=== PATIENT | male | born 1935 | race Caucasian/White ===

== ENCOUNTER 2019-05-10 10:42 | Day surgery (SDC) | payer MEDICARE ==
[2019-05-09 14:56] VITALS: BMI 25.8
--- NOTE | 2019-05-10 20:51 | OP ---
DATE OF PROCEDURE: 05/10/2019 PROCEDURE PERFORMED: Colonoscopy with snare polypectomy and biopsy. PREPROCEDURE DIAGNOSIS: Average risk colon cancer screening. POSTPROCEDURE DIAGNOSES: 1. Exam to cecum; good bowel preparation. 2. Moderate sigmoid diverticulosis. 3. Diminutive sessile polyp in the sigmoid colon (4 mm), removed by snare electrocautery. 4. Two small sessile polyps in the transverse colon, one removed by cold snare technique and the second by biopsy. 5. Small internal hemorrhoids. 6. Otherwise normal colonoscopy. PROCEDURE IN DETAIL: Written informed consent was obtained. The patient was brought to the endoscopy suite. Total intravenous anesthesia was provided by Toni Saleh CRNA. The patient was placed in the left lateral decubitus position. A digital rectal exam was performed that was unremarkable. A Pentax video colonoscope was inserted through the anal canal and advanced under direct visualization to the cecum. Position in the cecum was verified by clear identification of the appendiceal orifice and the ileocecal valve. The quality of the bowel preparation was good. Each colon segment was examined carefully as the colonoscope was slowly withdrawn from the cecum. Vascular pattern and haustral folds appeared normal. Frequent diverticular orifices, both small and large, were identified in the sigmoid colon. There was no evidence of bleeding from the diverticula. A small sessile polyp about 4 mm in diameter was removed from the mid sigmoid colon by snare electrocautery. Good hemostasis was verified post polypectomy and the tissue were submitted to Pathology. Two additional small sessile polyps were identified in the transverse colon. The larger polyp measuring 3 mm in diameter was removed by cold snare technique. The second 2 mm polyp was removed by cold biopsy forceps. The polyp tissue was retrieved and submitted to Pathology. No other synchronous polyps were identified. In the rectum, retroflexed view demonstrated small internal hemorrhoids that were not actively bleeding. The colon was decompressed as the colonoscope was removed from the patient. He was transferred to the Day Stay surgery area for postprocedure monitoring. There were no immediate complications. RECOMMENDATIONS: 1. Await pathology results. 2. Ask the patient to call me in 1 week for pathology results. 3. Recommend repeating colonoscopy in 5 years if clinically appropriate. 4. Follow up with GI as needed. Job ID: [id number] [facility]
== END 2019-05-10 14:40 | disposition home or self-care (01) ==
LOC: SDC 10:42
PROVIDERS: ATTEND Internal Medicine Gastroenterology
PROC: 0DBN8ZZ Excision of Sigmoid Colon, Via Natural or Artificial Opening Endoscopic (ICD-10-PCS; principal; 2019-05-10)
PROC: 0DBL8ZX Excision of Transverse Colon, Via Natural or Artificial Opening Endoscopic, Diagnostic (ICD-10-PCS; 2019-05-10)
DX: Z12.11 Encounter for screening for malignant neoplasm of colon (principal); D12.5 Benign neoplasm of sigmoid colon; K63.5 Polyp of colon; K57.30 Diverticulosis of large intestine without perforation or abscess without bleeding; K64.8 Other hemorrhoids; I10 Essential (primary) hypertension; E07.9 Disorder of thyroid, unspecified; Z79.899 Other long term (current) drug therapy; Z88.0 Allergy status to penicillin; Z88.8 Allergy status to other drugs, medicaments and biological substances; Z87.891 Personal history of nicotine dependence
CPT/HCPCS: 88305